=== PATIENT | female | born 1990 ===

== ENCOUNTER 2016-12-24 11:25 | Emergency (ER) | payer MEDICAID, OTHER ==
[2016-12-24 11:25] VITALS: BMI 34.9
[2016-12-24 11:32] VITALS: TEMP 98.4
[2016-12-24] MEDS ORDERED: Albuterol-Ipratrop 3 mg / 0.5 (3 ml) UD ONE (11:59)
[2016-12-24] MEDS ORDERED: Albuterol-Ipratrop 3 mg / 0.5 (3 ml) UD IH SCH (12:00)
[2016-12-24 12:43] VITALS: BP 115/74; PULSE 91; RESP 20; O2SAT 99
--- NOTE | 2016-12-24 12:58 | C.PDOC ---
History Of Present Illness 26 y/o female 15 weeks , hx asthma presents to the ED with complaints of cough and chest congestion x5 days. Pt reports using pump without relief. Denies fever (but "feels warm"), runny nose, sore throat, abdominal pain, dysuria, hematuria, vaginal discharge or any other complaints. Time Seen by Provider: 12/24/16 11:38 Chief Complaint (Nursing): Respiratory Distress History Per: Patient History/Exam Limitations: no limitations Onset/Duration Of Symptoms: Days Current Symptoms Are (Timing): Still Present Current Respiratory Medications: Albuterol Severity: Mild Recent travel outside of the [place]: No Past Medical History Reviewed: Historical Data, Nursing Documentation, Vital Signs Vital Signs: Last Vital Signs Temp 98.4 F 12/24/16 11:29 Pulse 91 H 12/24/16 12:43 Resp 20 12/24/16 12:43 BP 115/74 12/24/16 12:43 Pulse Ox 99 12/24/16 13:02 - Medical History PMH: Asthma, Hiatal Hernia, Migraine, Seizures - [facility] Procedures CLOSURE SKIN & SUBCUTANEOUS NEC (12/08/12) DRAINAGE OF L PLEURAL CAV WITH DRAIN DEV, PERC ENDO APPROACH (09/25/15) MONITORING NOS (04/12/14) INSPECTION OF UPPER INTESTINAL TRACT, ENDO (09/25/15) REPAIR RIGHT DIAPHRAGM, PERCUTANEOUS ENDOSCOPIC APPROACH (09/25/15) RESTRICTION OF ESOPHAGOGASTRIC JUNCTION, PERC ENDO APPROACH (09/25/15) ROBOTIC ASSISTED PROCEDURE OF TRUNK, PERC ENDO APPROACH (09/25/15) TETANUS TOXOID ADMINIST (12/08/12) Family History: States: Unknown Family Hx - Social History Hx Tobacco Use: Yes Hx Alcohol Use: No Hx Substance Use: No - Immunization History Hx Tetanus Toxoid Vaccination: No Hx Influenza Vaccination: Yes Hx Pneumococcal Vaccination: No Review Of Systems Except As Marked, All Systems Reviewed And Found Negative. Constitutional: Negative for: Fever, Chills ENT: Negative for: Nose Discharge, Throat Pain Cardiovascular: Negative for: Chest Pain Respiratory: Positive for: Cough, Other (chest congestion). Negative for: Shortness of Breath Gastrointestinal: Negative for: Abdominal Pain Genitourinary: Negative for: Dysuria, Hematuria, Vaginal Discharge Physical Exam - Physical Exam Appears: Non-toxic, No Acute Distress Skin: Warm, Dry, No Rash Head: Atraumatic, Normacephalic Ear(s): Bilateral: Normal Nose: Normal Oral Mucosa: Moist Throat: Normal, No Erythema Neck: Normal, Normal ROM, Supple Chest: Symmetrical Cardiovascular: Rhythm Regular, No Murmur Respiratory: No Rales, No Rhonchi, Wheezing (scattered wheezing bilaterally) Gastrointestinal/Abdominal: Soft, No Tenderness, Other (gravid) Extremity: Bilateral: Atraumatic Neurological/Psych: Oriented x3, Normal Speech, Normal Cognition ED Course And Treatment O2 Sat by Pulse Oximetry: 99 (room air) Pulse Ox Interpretation: Normal Progress Note: Plan: nebulizer treatment, prednisone, flu swab Medical Decision Making Medical Decision Making: Patient feeling better, requesting d/c , needs to greens picker child. Disposition Counseled Patient/Family Regarding: Diagnosis, Need For Followup, Rx Given - Disposition Disposition: HOME/ ROUTINE Disposition Time: 14:29 Condition: STABLE Additional Instructions: Use nebulizer 3 times a day. Take Prednisone 60 mg once a day for 4 days. Prescriptions: Prednisone [Deltasone] 60 mg PO DAILY #12 tablet Instructions: Asthma (ED) Forms: General Discharge Instructions, [facility] (Ivorian), Work Excuse - POA Present On Arrival: None - Clinical Impression Clinical Impression: Exacerbation of asthma - Scribe Statement The provider has reviewed the documentation as recorded by the Mehdi Rosas Provider Attestation: All medical record entries made by the Mehdi were at my direction and personally dictated by me. I have reviewed the chart and agree that the record accurately reflects my personal performance of the history, physical exam, medical decision making, and the department course for this patient. I have also personally directed, reviewed, and agree with the discharge instructions and disposition.
[2016-12-24] MEDS ORDERED: Albuterol 0.083% Inhal Sol (2.5 mg/3 mL) UD IH STA (13:56)
[2016-12-24] MEDS ORDERED: Albuterol 0.083% Inhal Sol (2.5 mg/3 mL) UD ONE (14:05)
== END 2016-12-24 14:36 | disposition home or self-care (01) ==
LOC: C.ER 11:25
DX: O99.512 Diseases of the respiratory system complicating pregnancy, second trimester (principal); J45.901 Unspecified asthma with (acute) exacerbation; Z72.0 Tobacco use; Z3A.15 15 weeks gestation of pregnancy

== ENCOUNTER 2017-06-12 07:52 | Inpatient (IN) | payer OTHER ==
[2017-05-19 11:09] VITALS: BMI 34.9
[2017-06-12] MEDS ORDERED: Penicillin G 5 Million Unit Vial IVPB ONE (08:04)
[2017-06-12] MEDS ORDERED: Lactated Ringer's 1,000 ML IV SCH (08:15)
[2017-06-12 08:36] LABS: BASO % 0.2 % (0.0-2.0); EOS % 0.2 % (0.0-4.0); LYMPH % 13.9 % (20.0-40.0); MEAN CORPUSCULAR HEMOGLOBIN 26.3 pg (27.0-31.0); MEAN CORPUSCULAR HGB CONC 33.5 g/dL (33.0-37.0); MEAN PLATELET VOLUME 9.7 fL (7.2-11.7); MONO # 0.9 K/uL (0.0-0.8); MONO % 6.4 % (0.0-10.0); NEUT # 11.5 K/uL (1.8-7.0); NEUT % 79.3 % (50.0-75.0); RBC 5.32 Mil/uL (3.80-5.20); RED CELL DISTRIBUTION WIDTH 14.9 % (11.5-14.5); WHITE BLOOD COUNT 14.5 K/uL (4.8-10.8)
[2017-06-12 08:40] LABS: MEAN CELL VOLUME 78.5 fL (81.0-99.0)
[2017-06-12 08:51] LABS: ALB/GLOB RATIO 1.1 (1.0-2.1); ALBUMIN 3.7 g/dL (3.5-5.0); ALT/SGPT 61 U/L (9-52); AST/SGOT 37 U/L (14-36); BLOOD UREA NITROGEN 8 mg/dL (7-17); CALCIUM 8.8 mg/dl (8.6-10.4); GFR AFRICAN-AMERICAN > 60; GFR NON-AFRICAN AMERICAN > 60
[2017-06-12] MEDS ORDERED: Bupivacaine HCl/FentaNYL Cit 100 ML EPI ONE (09:21)
[2017-06-12 10:50] LABS: SQUAMOUS EPITHIAL 3 /hpf (0-5); URINE BILIRUBIN NEGATIVE (NEGATIVE); URINE BLOOD 2+ (NEGATIVE); URINE CLARITY Clear (Clear); URINE COLOR Amber (YELLOW); URINE GLUCOSE (UA) NORMAL (Normal); URINE LEUKOCYTE ESTERASE NEG Leu/uL (Negative); URINE NITRATE NEGATIVE (NEGATIVE); URINE PROTEIN 1+ mg/dL (NEGATIVE); URINE UROBILINOGEN NORMAL mg/dL (0.2-1.0)
[2017-06-12 11:17] LABS: BARBITURATES, UR NEGATIVE (NEGATIVE); BENZODIAZEPINES, UR NEGATIVE (NEGATIVE); OPIATES, UR NEGATIVE (NEGATIVE); PHENCYCLIDINE, UR NEGATIVE (NEGATIVE)
--- NOTE | 2017-06-12 11:34 | OBHP ---
Datetime: 06/12/2017 08:07 IP Adm Impression: Term, intrauterine ; Active labor IP Admit Plan: Admit to unit; Initiate labor protocol Admit Comment, IP Provider: chief complaint-uterine contractions HPI 26 y/o at 39.6 wg awith c/o contractions since 5.30 am.Denies loo of fluid.reports hav ing some spotting course uncomplicated as per patient PMH epilepsy; last seizure 5 years ago PSH hernia repair(hiatal) OBGYN HX P3; NVDX3; topx3 Social hx tobacco use-smokes 6-7 cig/day; denies alcohol or illcit drug use Exam see exam section A/P 26 y/o at 39.6 wga in labor. -admit -start antibiotics for gbs prophylaxis Pelvic Type - PN: Adequate Extremities - PN: Normal Abdomen - PN: Normal Back - PN: Normal Lungs - PN: Normal Heart - PN: Normal General - PN: Normal Contraction Comments Provider: every 2min IP Hx Assessment: The History has been Reviewed and is Current EGA AdmitDate IP: 39.6 IP Chief Complaint: Uterine contractions FHR Category Provider Fetus A: Category I Dilatation, Provider: 4 Effacement, Provider: 80 Station, Provider: -2 Genitourinary Exam: Normal DTRs - PN: Normal
--- NOTE | 2017-06-12 11:37 | OBADHP ---
Datetime: 06/12/2017 08:07 Admit Comment, IP Provider: chief complaint-uterine contractions HPI 26 y/o at 39.6 wg awith c/o contractions since 5.30 am.Denies loo of fluid.reports hav ing some spotting course uncomplicated as per patient PMH epilepsy; last seizure 5 years ago PSH hernia repair(hiatal) OBGYN HX P3; NVDX3; topx3 Social hx tobacco use-smokes 6-7 cig/day; denies alcohol or illcit drug use Exam see exam section A/P 26 y/o at 39.6 wga in labor. -admit -start antibiotics for gbs prophylaxis Pelvic Type - PN: Adequate Extremities - PN: Normal Abdomen - PN: Normal Back - PN: Normal Lungs - PN: Normal Heart - PN: Normal General - PN: Normal Contraction Comments Provider: every 2min IP Hx Assessment: The History has been Reviewed and is Current IP Chief Complaint: Uterine contractions FHR Category Provider Fetus A: Category I Dilatation, Provider: 4 Effacement, Provider: 80 Station, Provider: -2 Genitourinary Exam: Normal DTRs - PN: Normal EGA AdmitDate IP: 39.6 IP Adm Impression: Term, intrauterine ; Active labor IP Admit Plan: Admit to unit; Initiate labor protocol
[2017-06-12] MEDS ORDERED: Oxytocin 20 units in LR 2,000 ML IV ONE (11:49)
[2017-06-12] MEDS ORDERED: Lidocaine 2% Inj (20ml) ONE (11:50)
--- NOTE | 2017-06-12 12:18 | OBDS ---
MATERNAL INFORMATION Estimated Blood Loss (ml): 250 Provider Comments: of a female .body and shoulders delivered without difficulty cord clamped and cut.cord blood collected placenta sponatneously delivered perineum intact fundus firm patient and infant stbalmarisel ebl 150cc LABOR SUMMARY EDC: 06/13/2017 00:00 No. Babies in Womb: 1 LABOR INFORMATION Group B Beta Strep: Positive (Annotations: 05/21/17) VAGINAL DELIVERY Episiotomy: None Laceration Extension: N/A Laceration Type: None Laceration Repair: Not Applicable Sponge Count Correct: Yes; Vaginal Sweep Performed Sharps Count Correct: N/A
[2017-06-12] MEDS ORDERED: DiphenhydrAMINE 50 mg/ml Inj IVP STA (12:19)
[2017-06-12] MEDS ORDERED: DiphenhydrAMINE 50 mg/ml Inj ONE (12:36)
[2017-06-12] MEDS ORDERED: Benzocaine/Menthol 20%-0.5% Topical Spray (60 ml) TOP PRN (13:43)
[2017-06-12] MEDS ORDERED: Oxycodone/Acetaminophen 5/325 mg Tab PO PRN ×2 (13:43)
[2017-06-12] MEDS ORDERED: Oxytocin 30 UNIT 30 UNITS/500 ML BAG IV SCH (13:45)
--- NOTE | 2017-06-13 07:39 | OBPPN ---
Datetime: 06/13/2017 07:36 PP Pain Prov: Within normal limits PP Nausea Prov: Denies PP Flatus Prov: Yes PP Abdomen/Uterus Prov: Normal PP Lochia Prov: Normal PP Extremities Prov: Normal PP Comments Phys Exam Prov: fudus below umbli ext no edema,no calf ten PP Impression Prov: Normal progression PP Plan Prov: Continue present management PP Progress Note Prov: pt was seen at bed side, pain under contrl, no n/v, tolerating deit,voiding,m in lochia , flatusa+ ppd#1 s/p cbc reg deit cont pp care cont pain man Vital Signs Provider PP: Reviewed; Within Normal Limits
[2017-06-13 08:23] LABS: BASO % 0.1 % (0.0-2.0); EOS % 0.3 % (0.0-4.0); HEMOGLOBIN 12.1 g/dL (11.0-16.0); LYMPH # 2.5 K/uL (1.0-4.3); LYMPH % 16.1 % (20.0-40.0); MEAN CELL VOLUME 78.9 fL (81.0-99.0); MEAN CORPUSCULAR HEMOGLOBIN 25.8 pg (27.0-31.0); MEAN CORPUSCULAR HGB CONC 32.7 g/dL (33.0-37.0); MEAN PLATELET VOLUME 9.8 fL (7.2-11.7); MONO # 1.2 K/uL (0.0-0.8); MONO % 7.8 % (0.0-10.0); NEUT # 11.9 K/uL (1.8-7.0); NEUT % 75.7 % (50.0-75.0); RBC 4.68 Mil/uL (3.80-5.20); RED CELL DISTRIBUTION WIDTH 14.7 % (11.5-14.5); WHITE BLOOD COUNT 15.7 K/uL (4.8-10.8)
[2017-06-13] MEDS: Multiple Vitamins Tab PO SCH (09:16)
[2017-06-13] MEDS ORDERED: Influenza Vaccine 60 mcg/0.5 mL SYR (4YR UP) IM ONE (14:00)
[2017-06-14 07:46] VITALS: BP 123/82; PULSE 50; RESP 18; TEMP 97.8; O2SAT 97
[2017-06-14] MEDS: Multiple Vitamins Tab PO SCH (09:39)
--- NOTE | 2017-06-14 09:48 | OBPPN ---
Datetime: 06/14/2017 09:45 PP Pain Prov: Within normal limits PP Nausea Prov: Denies PP Flatus Prov: Yes PP Abdomen/Uterus Prov: Normal PP Lochia Prov: Normal PP Extremities Prov: Normal PP Comments Phys Exam Prov: fudus below umblicus ext no edema,no calf ten PP Impression Prov: Normal progression PP Plan Prov: Discharge PP Progress Note Prov: pt was seen at bed siide, pain under control,no n/v, tolerating det, voiding, min lochisa, flatus+ ppd#2 s/p dc home no sex motrin prn f/u in clinic in 6week Vital Signs Provider PP: Reviewed; Within Normal Limits
--- NOTE | 2017-06-14 09:50 | OBDCSUM ---
Datetime: 06/14/2017 09:47 Discharged to, Provider: Home Follow up at, Provider: 6week Disch Instr Diet: Regular Discharge Instructions, Provider: Routine instructions given Discharge Diagnosis, Provider: Term Delivered Follow up in weeks, Provider: clinic Disch Activity Restrictions: No lifting; No driving; Minimize walking; Minimize stair-climbing; No s exual activity; Nothing in vagina - Davy, tampons, douche Discharge Comment, Provider: no sex motrin prn f/u in 6wek Discharge Diagnosis Prov Other: s/p
== END 2017-06-14 12:11 | disposition home or self-care (01) | DRG 373 ==
LOC: C.EROB 07:52 → C.4D 08:00 → C.4M 14:26
PROVIDERS: ADMIT Student in an Organized Health Care Education/Training Program; ATTEND Student in an Organized Health Care Education/Training Program
PROC: 10E0XZZ Delivery of Products of Conception, External Approach (ICD-10-PCS; principal; 2017-06-12)
DX: O99.334 Smoking (tobacco) complicating childbirth (principal); F17.210 Nicotine dependence, cigarettes, uncomplicated; O99.820 Streptococcus B carrier state complicating pregnancy; Z3A.39 39 weeks gestation of pregnancy; Z37.0 Single live birth

== ENCOUNTER 2018-04-23 16:26 | Emergency (ER) | payer OTHER ==
[2018-04-23 16:27] VITALS: BMI 34.3
[2018-04-23] MEDS ORDERED: Sodium Chloride 0.9% 1,000 ML IV ONE (17:25)
[2018-04-23] MEDS ORDERED: Sodium Chloride 0.9% 1,000 ML ONE (17:37)
[2018-04-23 17:47] LABS: BASO % 0.3 % (0.0-2.0); EOS # 0.1 K/uL (0.0-0.7); EOS % 0.6 % (0.0-4.0); HEMOGLOBIN 13.6 g/dL (11.0-16.0); LYMPH # 2.2 K/uL (1.0-4.3); LYMPH % 14.8 % (20.0-40.0); MEAN CELL VOLUME 80.3 fL (81.0-99.0); MEAN CORPUSCULAR HGB CONC 33.7 g/dL (33.0-37.0); MEAN PLATELET VOLUME 8.4 fL (7.2-11.7); MONO # 0.8 K/uL (0.0-0.8); MONO % 5.5 % (0.0-10.0); NEUT # 11.7 K/uL (1.8-7.0); NEUT % 78.8 % (50.0-75.0); NRBC % 0.1 % (0.0-2.0); RBC 5.05 Mil/uL (3.80-5.20); WHITE BLOOD COUNT 14.9 K/uL (4.8-10.8)
[2018-04-23 17:52] LABS: HCG,QUALITATIVE URINE POSITIVE (NEGATIVE)
[2018-04-23 17:55] LABS: SQUAMOUS EPITHIAL 1 /hpf (0-5); URINE BACTERIA OCC (<OCC); URINE BILIRUBIN NEGATIVE (NEGATIVE); URINE BLOOD 1+ (NEGATIVE); URINE CLARITY Clear (Clear); URINE COLOR Yellow (YELLOW); URINE GLUCOSE (UA) NORMAL (Normal); URINE LEUKOCYTE ESTERASE NEG Leu/uL (Negative); URINE PROTEIN NEGATIVE (NEGATIVE)
[2018-04-23 18:02] LABS: ALB/GLOB RATIO 1.4 (1.0-2.1); ALBUMIN 3.7 g/dL (3.5-5.0); ALT/SGPT 17 U/L (9-52); AST/SGOT 19 U/L (14-36); BLOOD UREA NITROGEN 8 mg/dL (7-17); CALCIUM 8.8 mg/dl (8.6-10.4); GFR NON-AFRICAN AMERICAN > 60
--- NOTE | 2018-04-23 18:10 | C.PDOC ---
History Of Present Illness 27 year old female with PMHx of seizures presents to the ED BIBA status post witnessed seizure at a [place]. Reports she went to the grocery store to get a chocolate bar because she felt her blood sugar was getting low when she passed out. States she remembers arriving to the grocery store and trying to find orange juice when she lost consciousness. Complains of contusion to the temporal occipital region. Denies any incontinence, headache, fever, chills, nausea, vomiting, chest pain, shortness of breath, or any other symptoms. Notes she has not taken Dilantin in 3 years and she has not had a seizure for 5 years. Time Seen by Provider: 04/23/18 17:19 Chief Complaint (Nursing): Seizure History Per: Patient History/Exam Limitations: no limitations Recent Seizure Activity Began: Just Before Arrival Number Of Seizures: One Length Of Seizures (Duration): Seconds Post-ictal Period: No Past Medical History Reviewed: Historical Data, Nursing Documentation, Vital Signs Vital Signs: Last Vital Signs Temp Pulse 113 H 04/23/18 16:35 Resp 25 H 04/23/18 16:35 BP 129/73 04/23/18 16:35 Pulse Ox 98 04/23/18 16:35 - Medical History PMH: Asthma, Hiatal Hernia, Migraine, Seizures Denies: Depression, Diabetes, HTN, Chronic Kidney Disease Other Surgeries: Hx of surgeries - [facility] Procedures CLOSURE SKIN & SUBCUTANEOUS NEC (12/08/12) DELIVERY OF PRODUCTS OF CONCEPTION, EXTERNAL APPROACH (06/12/17) DRAINAGE OF L PLEURAL CAV WITH DRAIN DEV, PERC ENDO APPROACH (09/25/15) MONITORING NOS (04/12/14) INSPECTION OF UPPER INTESTINAL TRACT, ENDO (09/25/15) REPAIR RIGHT DIAPHRAGM, PERCUTANEOUS ENDOSCOPIC APPROACH (09/25/15) RESTRICTION OF ESOPHAGOGASTRIC JUNCTION, PERC ENDO APPROACH (09/25/15) ROBOTIC ASSISTED PROCEDURE OF TRUNK, PERC ENDO APPROACH (09/25/15) TETANUS TOXOID ADMINIST (12/08/12) Family History: States: No Known Family Hx - Social History Hx Tobacco Use: Yes Hx Alcohol Use: Yes Hx Substance Use: No - Immunization History Hx Tetanus Toxoid Vaccination: No Hx Influenza Vaccination: No Hx Pneumococcal Vaccination: No Review Of Systems Except As Marked, All Systems Reviewed And Found Negative. Constitutional: Negative for: Fever, Chills Cardiovascular: Negative for: Palpitations Respiratory: Negative for: Shortness of Breath Gastrointestinal: Negative for: Nausea, Vomiting Skin: Positive for: Other (contusion to temporal occipital region ) Neurological: Positive for: Seizures. Negative for: Headache, Dizziness Physical Exam - Physical Exam Appears: Non-toxic, No Acute Distress Skin: Warm, Dry, No Rash Head: Normacephalic, Other (contusion to temporal occipital region ) Eye(s): bilateral: Normal Inspection, Other (colored contacts) Ear(s): Bilateral: Normal Nose: Normal Oral Mucosa: Moist Tongue: Normal Appearing, No Bite Throat: Normal Neck: Normal ROM, Supple Chest: Symmetrical Cardiovascular: Rhythm Regular Respiratory: Normal Breath Sounds, No Rales, No Rhonchi, No Wheezing Gastrointestinal/Abdominal: Soft, No Tenderness Extremity: Normal ROM Extremity: Bilateral: Atraumatic, Normal Color And Temperature, Normal ROM Neurological/Psych: Oriented x3, Normal Speech Gait: Steady ED Course And Treatment - Laboratory Results Result Diagrams: 04/23/18 17:37 04/23/18 17:37 Lab Interpretation: Abnormal (QHCG 275) Urine POC: Positive O2 Sat by Pulse Oximetry: 98 (RA) Pulse Ox Interpretation: Normal - Radiology CXR: Interpreted by Me, Viewed By Me, Read By Radiologist CXR Interpretation: Yes: No Acute Disease - CT Scan/US US transvaginal/pelvis Other Rad Studies (CT/US): Read By Radiologist, Radiology Report Reviewed CT/US Interpretation: IMPRESSION: 1. Transabdominal and trans-vaginal ultrasound study of the pelvis. 2. LMP 03/01/18, G7, para 4, AB 3. 1 week ago, had IUD placed 2 days ago. 3. Images of the pelvis were acquired with a high-resolution scanner. 4. The uterus measures 11.24 x 5.37 x 6.89 cm and is anteverted in configuration. No uterine masses are identified. Endometrial thickness is 0.71 cm. There is no fluid in the cul-de-sac. 5. The right ovary measures 3.22 x 1.12 x 3.02 cm. There is normal Doppler blood flow signal. 6. The left ovary measures 2.37 x 1.65 x 1.97 cm, and also demonstrates a normal Doppler blood flow signal. 7. Both ovaries demonstrate multiple follicular cysts. 8. There is an IUD in the endometrial cavity. Reevaluation Time: 20:48 Reassessment Condition: Improved Medical Decision Making Medical Decision Making: Plan -- EKG -- POC glucose -- IV Fluids -- CXR Blood sugar levels were 51 on arrival. Patient was given sugary drinks. On reassessment, blood sugar levels were 113. On reevaluation, patient states she had an 6 days ago. Patient had an IUD placed 2 days ago and has had mild vaginal spotting since then. ([id number]). Denies any vaginal discharge or abdominal pain. recent theraputic AB and IUD placement no , no ectopic vasovagal vs poor PO intake for the day may have provoked seizure activity minor L temp/occ and L frontal contusions, defer head CT normal neuro exam Mild leukocytosis may be related to fall or falling since LOW susp of abd complications of theraputic AB or endometritis outpatient f/u. Disposition Doctor Will See Patient In The: Office Counseled Patient/Family Regarding: Studies Performed, Diagnosis - Disposition Disposition: HOME/ ROUTINE Disposition Time: 20:51 Condition: GOOD Forms: [facility] (Zimbabwean) - Clinical Impression Clinical Impression: Seizure, history - Scribe Statement The provider has reviewed the documentation as recorded by the Scribe Apple Orantes All medical record entries made by the Anilibe were at my direction and personally dictated by me. I have reviewed the chart and agree that the record accurately reflects my personal performance of the history, physical exam, medical decision making, and the department course for this patient. I have also personally directed, reviewed, and agree with the discharge instructions and disposition.
[2018-04-23 18:11] LABS: BARBITURATES, UR NEGATIVE (NEGATIVE); BENZODIAZEPINES, UR NEGATIVE (NEGATIVE); OPIATES, UR NEGATIVE (NEGATIVE); PHENCYCLIDINE, UR NEGATIVE (NEGATIVE)
--- NOTE | 2018-04-23 18:12 | RAD ---
Date of service: 04/23/2018 PROCEDURE: CHEST RADIOGRAPH, 1 VIEW HISTORY: Seizure COMPARISON: 10/04/2015 FINDINGS: LUNGS: Clear. PLEURA: No pneumothorax or pleural fluid seen. CARDIOVASCULAR: No aortic atherosclerotic calcification present. Normal. OSSEOUS STRUCTURES: No significant abnormalities. VISUALIZED UPPER ABDOMEN: Normal. OTHER FINDINGS: None. IMPRESSION: No active disease. No acute/significant interval changes. Concordant results with the preliminary interpretation rendered by the emergency department physician procedure.
[2018-04-23 21:08] VITALS: BP 108/61; PULSE 71; RESP 16; TEMP 98.3; O2SAT 97
--- NOTE | 2018-04-24 15:12 | US ---
Pelvic ultrasound HISTORY: 1 week prior. Intrauterine device placed 2 days prior. Pelvic pain. Comparison: None available. Technique: Real-time sonography was performed through the pelvis utilizing transabdominal and transvaginal techniques. Findings: HCG measures 275. Uterus: 11.2 x 5.4 x 6.9 centimeters. Heterogeneous echotexture. Anteverted. Endometrium measures 7 millimeters. Intrauterine device seen within the endometrial cavity, possibly somewhat low lying. Clinical correlation. No free fluid in the pelvic cul-de-sac Right ovary: 3.2 x 1.1 x 3.0 centimeters. Normal flow. Left ovary: 2.4 x 1.7 x 2.0 centimeters. Normal flow. Impression: 1. Intrauterine device seen within the endometrial cavity, possibly somewhat low lying. Clinical correlation. 2. HCG level is positive but low measuring 275. In the setting of a positive test and lack of discrete intrauterine , considerations may include missed / versus early versus ectopic . Clinical correlation. Continued interval follow-up is recommended if clinically indicated. A preliminary report was generated by Dr. Ten Garzon from [facility] at 8:45 p.m. on 04/23/2018.
--- NOTE | 2018-04-27 22:12 | CARD ---
APPROVED REPORT Date of service: 04/23/2018 EKG Measurement Heart [id number] <Conclusion> Normal sinus rhythm Moderate voltage criteria for LVH, may be normal variant Borderline ECG
== END 2018-04-23 21:13 | disposition home or self-care (01) ==
LOC: C.ER 16:26
DX: R56.9 Unspecified convulsions (principal); Z98.890 Other specified postprocedural states
CPT/HCPCS: 71045; 76830; 76856; 80053; 80320; 80324; 80345; 80346; 80349; 80353; 80358; 80361; 81001; 82550; 82948; 83992; 84702; 84703; 85025; 86850; 86900; 93005; 99285; J7030

== ENCOUNTER 2018-04-26 22:55 | Emergency (ER) | payer OTHER ==
[2018-04-26 22:55] VITALS: BMI 34.3
[2018-04-26] MEDS ORDERED: Magnesium Sulfate 1 gm in D5W 1 GM/100 ML BAG IVPB STA (23:32)
[2018-04-26] MEDS ORDERED: Dexamethasone 4 mg/1 ml IVP STA (23:32)
[2018-04-26] MEDS ORDERED: Sodium Chloride 0.9% 1,000 ML IV STA (23:32)
--- NOTE | 2018-04-26 23:32 | C.PDOC ---
History Of Present Illness 27 year old female presents to the ED c/o headache, dizziness, not feeling herself for the past couple of days. Patient was seen on 04/13 for hypoglycemic reaction which caused her to faint and hit her head. Patient states she noticed bruising behind her left ear. Patient states she took Tylenol yesterday and Motrin today 4 hours LAST TURNER both without relief. Patient denies nausea, vomit, diarrhea, visual changes, neck pain, weakness, numbness. Chief Complaint (Nursing): Dizziness/Lightheaded History Per: Patient History/Exam Limitations: no limitations Injury Occurred (Timing): Days Ago: (3) Onset/Duration Of Symptoms: Days (2) Patient States: Fell Striking Head Severity: None Loss Of Consciousness: Yes Recent travel outside of the [place]: No Additional History Per: Patient Past Medical History Reviewed: Historical Data, Nursing Documentation, Vital Signs Vital Signs: Last Vital Signs Temp 97.8 F 04/26/18 23:01 Pulse 81 04/26/18 23:01 Resp 20 04/26/18 23:01 BP 126/79 04/26/18 23:01 Pulse Ox 100 04/26/18 23:01 - Medical History PMH: Asthma, Hiatal Hernia, Migraine, Seizures Denies: Depression, Diabetes, HTN, Chronic Kidney Disease Surgical History: No Surg Hx - [facility] Procedures CLOSURE SKIN & SUBCUTANEOUS NEC (12/08/12) DELIVERY OF PRODUCTS OF CONCEPTION, EXTERNAL APPROACH (06/12/17) DRAINAGE OF L PLEURAL CAV WITH DRAIN DEV, PERC ENDO APPROACH (09/25/15) MONITORING NOS (04/12/14) INSPECTION OF UPPER INTESTINAL TRACT, ENDO (09/25/15) REPAIR RIGHT DIAPHRAGM, PERCUTANEOUS ENDOSCOPIC APPROACH (09/25/15) RESTRICTION OF ESOPHAGOGASTRIC JUNCTION, PERC ENDO APPROACH (09/25/15) ROBOTIC ASSISTED PROCEDURE OF TRUNK, PERC ENDO APPROACH (09/25/15) TETANUS TOXOID ADMINIST (12/08/12) Family History: States: Unknown Family Hx - Social History Hx Tobacco Use: Yes Hx Alcohol Use: Yes Hx Substance Use: No - Immunization History Hx Tetanus Toxoid Vaccination: No Hx Influenza Vaccination: No Hx Pneumococcal Vaccination: No Review Of Systems Constitutional: Negative for: Fever, Chills Eyes: Negative for: Vision Change Cardiovascular: Negative for: Chest Pain Respiratory: Negative for: Shortness of Breath Gastrointestinal: Negative for: Nausea, Vomiting, Abdominal Pain Musculoskeletal: Negative for: Neck Pain Skin: Positive for: Bruising Neurological: Positive for: Headache, Dizziness. Negative for: Weakness, Numbness Physical Exam - Physical Exam Appears: Non-toxic, No Acute Distress Skin: Warm, Dry, Other (bruising behind left ear) Head: Atraumatic, Normacephalic, Tenderness (soft tissue left parietal region) Eye(s): bilateral: Normal Inspection, PERRL, EOMI Ear(s): Left: Other (bruising behind left ear. Not tender to palpation), Bilateral: Normal Neck: Normal ROM, No Midline Cervical Tenderness, Supple Chest: Symmetrical Cardiovascular: Rhythm Regular Respiratory: Normal Breath Sounds, No Rales, No Rhonchi, No Wheezing Gastrointestinal/Abdominal: Soft, No Tenderness, No Guarding, No Rebound Extremity: Normal ROM, No Tenderness, No Swelling Neurological/Psych: Oriented x3, Normal Speech, Normal Cognition, Normal Motor, Normal Sensation, Other (non focal) Gait: Steady ED Course And Treatment O2 Sat by Pulse Oximetry: 100 (ON RA) Pulse Ox Interpretation: Normal - CT Scan/US CT head Other Rad Studies (CT/US): Read By Radiologist, Radiology Report Reviewed CT/US Interpretation: CT SCAN OF THE BRAIN WITHOUT IV CONTRAST. CLINICAL INDICATION: Trauma. TECHNIQUE: Axial images of the brain obtained without IV contrast administration. Normal size of the ventricles and extra-axial spaces for the patient's age. Normal white matter tracts of the supratentorial brain. Normal basal ganglia and thalami. Normal brainstem. Normal cerebellum. There is no demonstrated extra-axial, intraparenchymal, or intraventricular hemorrhage. There are no findings of an acute ischemic infarction. Normal calvarium. There is no demonstrated fracture. Normal soft tissue structures. Normal visualized paranasal sinuses. IMPRESSION: Normal unenhanced CT scan of the brain. . Electronically signed on Apr 27, 2018 12:40:55 AM EST by: Gilbert Gutiérrez M.D., Certified by LEONOR, MSK, Neuroradiology Progress - Re-Evaluation Re-evaluation Note: 04/27/18 00:43 neuro intact, feels better CT REPORT NEG - Data Reviewed Data Reviewed: Diagnostic imaging, Old records Medical Decision Making Medical Decision Making: Plan: * CT head * Decadron 8 mg IVP * Magnesium sulfate IVPB * Reglan 10 mg IVP * IV fluids * Tylenol 975 mg PO Disposition Counseled Patient/Family Regarding: Studies Performed, Diagnosis, Need For F ollowup, Rx Given - Disposition Referrals: YOUR,PMD [Other] Disposition: HOME/ ROUTINE Disposition Time: 00:44 Condition: IMPROVED Prescriptions: Metoclopramide [Reglan] 1 tab PO TID PRN #25 tab PRN Reason: Nausea/Vomiting Instructions: Minor Head Injury (DC) Forms: [facility] (Serbian), Work Excuse - Clinical Impression Clinical Impression: Concussion syndrome - Scribe Statement The provider has reviewed the documentation as recorded by the Scribe Theodore Gleason All medical record entries made by the Scribe were at my direction and personally dictated by me. I have reviewed the chart and agree that the record accurately reflects my personal performance of the history, physical exam, medical decision making, and the department course for this patient. I have also personally directed, reviewed, and agree with the discharge instructions and disposition.
[2018-04-26] MEDS ORDERED: Dexamethasone 4 mg/1 ml ONE (23:43)
[2018-04-26] MEDS ORDERED: Sodium Chloride 0.9% 1,000 ML ONE (23:44)
[2018-04-27 01:28] VITALS: BP 104/59; PULSE 70; RESP 20; TEMP 98; O2SAT 97
--- NOTE | 2018-04-27 09:24 | CT ---
Date of service: 04/27/2018 PROCEDURE: CT HEAD WITHOUT CONTRAST. HISTORY: TRAUMA COMPARISON: 11/22/2012 TECHNIQUE: Axial computed tomography images were obtained through the head/brain without intravenous contrast. Radiation dose: Total exam DLP = 1063.24 mGy-cm. This CT exam was performed using one or more of the following dose reduction techniques: Automated exposure control, adjustment of the mA and/or kV according to patient size, and/or use of iterative reconstruction technique. FINDINGS: HEMORRHAGE: No intracranial hemorrhage. BRAIN: No mass effect or edema. No atrophy or chronic microvascular ischemic changes. VENTRICLES: Unremarkable. No hydrocephalus. CALVARIUM: Unremarkable. PARANASAL SINUSES: Unremarkable as visualized. No significant inflammatory changes. MASTOID AIR CELLS: Unremarkable as visualized. No inflammatory changes. OTHER FINDINGS: None. IMPRESSION: No acute intracranial abnormality. If symptoms persist, consider correlation with MRI. A preliminary report was generated at 12:40 a.m. on 04/27/[address] Gilbert Gutiérrez from [facility].
== END 2018-04-27 01:29 | disposition home or self-care (01) ==
LOC: C.ER 22:55
DX: S06.0X0A Concussion without loss of consciousness, initial encounter (principal); X58.XXXA Exposure to other specified factors, initial encounter
CPT/HCPCS: 70450; 96361; 96365; 96375; 99285; J1100; J2765; J3475; J7030

== ENCOUNTER 2018-07-13 16:29 | Emergency (ER) | payer OTHER ==
[2018-07-13 16:43] VITALS: BMI 37.2
[2018-07-13 16:48] VITALS: O2SAT 99
--- NOTE | 2018-07-13 16:54 | C.PDOC ---
History Of Present Illness Patient is 27 year old female who presents to the ED c/o intermittent dizziness for 4 days that is worse with lying down and positional changes in bed. Patient also notes an associated headache. She denies any trauma, weakness, or visual changes. <Ean Mottapson M - Last Filed: 07/13/18 18:18> <Isha Robertson - Last Filed: 07/13/18 16:48> History Per: Patient History/Exam Limitations: no limitations Onset/Duration Of Symptoms: Days (4) Current Symptoms Are (Timing): Still Present Recent travel outside of the [place]: No Additional History Per: Patient <Bulmaro Motta - Last Filed: 07/13/18 18:18> Time Seen by Provider: 07/13/18 16:44 Chief Complaint (Nursing): Dizziness/Lightheaded Past Medical History Vital Signs: Last Vital Signs Temp 98.8 F 07/13/18 16:43 Pulse 90 07/13/18 16:43 Resp 18 07/13/18 16:43 BP 113/78 07/13/18 16:43 Pulse Ox 99 07/13/18 16:43 - Medical History PMH: Asthma, Hiatal Hernia, Migraine, Seizures Denies: Depression, Diabetes, HTN, Chronic Kidney Disease - [facility] [place] Procedures CLOSURE SKIN & SUBCUTANEOUS NEC (12/08/12) DELIVERY OF PRODUCTS OF CONCEPTION, EXTERNAL APPROACH (06/12/17) DRAINAGE OF L PLEURAL CAV WITH DRAIN DEV, PERC ENDO APPROACH (09/25/15) MONITORING NOS (04/12/14) INSPECTION OF UPPER INTESTINAL TRACT, ENDO (09/25/15) REPAIR RIGHT DIAPHRAGM, PERCUTANEOUS ENDOSCOPIC APPROACH (09/25/15) RESTRICTION OF ESOPHAGOGASTRIC JUNCTION, PERC ENDO APPROACH (09/25/15) ROBOTIC ASSISTED PROCEDURE OF TRUNK, PERC ENDO APPROACH (09/25/15) TETANUS TOXOID ADMINIST (12/08/12) Family History: States: Unknown Family Hx - Social History Hx Tobacco Use: Yes Hx Alcohol Use: Yes Hx Substance Use: No - Immunization History Hx Tetanus Toxoid Vaccination: No Hx Influenza Vaccination: No Hx Pneumococcal Vaccination: No <Isha Robertson - Last Filed: 07/13/18 16:48> Reviewed: Historical Data, Nursing Documentation, Vital Signs Vital Signs: Last Vital Signs Temp 98.8 F 07/13/18 16:43 Pulse 90 02/05/19 16:43 Resp 18 07/13/18 16:43 BP 113/78 07/13/18 16:43 Pulse Ox 99 07/13/18 16:53 Surgical History: No Surg Hx - [facility] Procedures CLOSURE SKIN & SUBCUTANEOUS NEC (12/08/12) DELIVERY OF PRODUCTS OF CONCEPTION, EXTERNAL APPROACH (06/12/17) DRAINAGE OF L PLEURAL CAV WITH DRAIN DEV, PERC ENDO APPROACH (09/25/15) MONITORING NOS (04/12/14) INSPECTION OF UPPER INTESTINAL TRACT, ENDO (09/25/15) REPAIR RIGHT DIAPHRAGM, PERCUTANEOUS ENDOSCOPIC APPROACH (09/25/15) RESTRICTION OF ESOPHAGOGASTRIC JUNCTION, PERC ENDO APPROACH (09/25/15) ROBOTIC ASSISTED PROCEDURE OF TRUNK, PERC ENDO APPROACH (09/25/15) TETANUS TOXOID ADMINIST (12/08/12) <Bulmaro Motta M - Last Filed: 07/13/18 18:18> Review Of Systems Except As Marked, All Systems Reviewed And Found Negative. Neurological: Positive for: Headache, Dizziness <Bulmaro Motta M - Last Filed: 07/13/18 18:18> Physical Exam - Physical Exam Appears: Non-toxic, No Acute Distress Skin: Normal Color, Warm, Dry Head: Atraumatic, Normacephalic Eye(s): bilateral: Normal Inspection, PERRL, EOMI Nose: Normal Oral Mucosa: Moist Chest: Symmetrical Cardiovascular: Rhythm Regular, No Murmur Respiratory: Normal Breath Sounds, No Rales, No Rhonchi, No Wheezing Gastrointestinal/Abdominal: Normal Exam, Soft, No Tenderness Extremity: Normal ROM Neurological/Psych: Oriented x3, Normal Speech, Other (Not presently dizzy ) <Bulmaro Motta M - Last Filed: 07/13/18 18:18> ED Course And Treatment O2 Sat by Pulse Oximetry: 99 <Isha Robertson - Last Filed: 07/13/18 16:48> - Laboratory Results Result Diagrams: 07/13/18 17:31 07/13/18 17:31 - CT Scan/US CAT Head Other Rad Studies (CT/US): Read By Radiologist, Radiology Report Reviewed CT/US Interpretation: IMPRESSION: No acute intracranial pathology identified. <Bulmaro Motta - Last Filed: 07/13/18 18:18> Medical Decision Making Medical Decision Making: Plan: CAT Head LAbs Urinalysis Urinalysis HCG Antivert 25mg PO Sudafed 30mg PO Assessment: Vertigo patient states improvement. Will administer toradol for slight headache as described by patient. Follow up with pmd within 2 days. <Bulmaro Motta M - Last Filed: 07/13/18 18:18> Disposition <Isha Robertson - Last Filed: 07/13/18 16:48> Counseled Patient/Family Regarding: Studies Performed, Diagnosis - Disposition Disposition Time: 18:15 <Ean Mottapson Ella - Last Filed: 07/13/18 18:18> - Disposition Referrals: Bryan Green MD [Staff Provider] - Disposition: HOME/ ROUTINE Condition: STABLE Additional Instructions: follow up with your doctor within 2 days call to make an appointment take medications as prescribed and needed return to ER if symptoms worsens or progress Prescriptions: Meclizine [Meclizine*] 25 mg PO TID PRN #15 tab PRN Reason: Dizziness Naproxen [Naprosyn] 500 mg PO BID PRN #16 tab PRN Reason: Pain, Moderate (4-7) Pseudoephedrine HCl [Sudafed] 30 mg PO TID PRN #12 tablet PRN Reason: Dizziness Instructions: Vertigo (a Type of Dizziness), Headache, Adult (DC) Forms: [facility] (Turkmen), General Discharge Instructions, Work Excuse - Clinical Impression Clinical Impression: Dizziness, Headache - Scribe Statement The provider has reviewed the documentation as recorded by the Mehdi Yost All medical record entries made by the Mehdi were at my direction and personally dictated by me. I have reviewed the chart and agree that the record accurately reflects my personal performance of the history, physical exam, medical decision making, and the department course for this patient. I have also personally directed, reviewed, and agree with the discharge instructions and disposition. <KaliaChamberlain M - Last Filed: 07/13/18 18:18>
[2018-07-13 17:38] LABS: BASO # 0.1 K/uL (0.0-0.2); BASO % 0.5 % (0.0-2.0); EOS # 0.1 K/uL (0.0-0.7); EOS % 0.9 % (0.0-4.0); HEMOGLOBIN 14.9 g/dL (11.0-16.0); LYMPH % 28.8 % (20.0-40.0); MEAN CELL VOLUME 81.4 fL (81.0-99.0); MEAN CORPUSCULAR HEMOGLOBIN 26.7 pg (27.0-31.0); MEAN CORPUSCULAR HGB CONC 32.8 g/dL (33.0-37.0); MEAN PLATELET VOLUME 8.7 fL (7.2-11.7); MONO # 0.8 K/uL (0.0-0.8); MONO % 7.3 % (0.0-10.0); NEUT # 6.5 K/uL (1.8-7.0); NEUT % 62.5 % (50.0-75.0); RBC 5.59 Mil/uL (3.80-5.20); RED CELL DISTRIBUTION WIDTH 14.1 % (11.5-14.5); WHITE BLOOD COUNT 10.3 K/uL (4.8-10.8)
[2018-07-13 17:48] LABS: SQUAMOUS EPITHIAL 2 /hpf (0-5); URINE BACTERIA OCC (<OCC); URINE BILIRUBIN NEGATIVE (NEGATIVE); URINE BLOOD NEGATIVE (NEGATIVE); URINE CLARITY Clear (Clear); URINE COLOR Yellow (YELLOW); URINE GLUCOSE (UA) NORMAL (Normal); URINE LEUKOCYTE ESTERASE NEG Leu/uL (Negative); URINE PROTEIN NEGATIVE (NEGATIVE); URINE UROBILINOGEN NORMAL mg/dL (0.2-1.0)
[2018-07-13 17:56] LABS: ALB/GLOB RATIO 1.6 (1.0-2.1); ALBUMIN 4.2 g/dL (3.5-5.0); ALT/SGPT 9 U/L (9-52); AST/SGOT 19 U/L (14-36); BLOOD UREA NITROGEN 14 mg/dL (7-17); CALCIUM 9.4 mg/dl (8.6-10.4); GFR NON-AFRICAN AMERICAN > 60
--- NOTE | 2018-07-13 17:57 | CT ---
Date of service: 07/13/2018 PROCEDURE: CT HEAD WITHOUT CONTRAST. HISTORY: dizziness COMPARISON: Noncontrast head CT performed 04/27/18 TECHNIQUE: Axial computed tomography images were obtained through the head/brain without intravenous contrast. Radiation dose: Total exam DLP = 1101.91 mGy-cm. This CT exam was performed using one or more of the following dose reduction techniques: Automated exposure control, adjustment of the mA and/or kV according to patient size, and/or use of iterative reconstruction technique. FINDINGS: HEMORRHAGE: No intracranial hemorrhage. BRAIN: No mass effect or edema. No atrophy or chronic microvascular ischemic changes. VENTRICLES: No hydrocephalus. CALVARIUM: Unremarkable. PARANASAL SINUSES: Unremarkable as visualized. No significant inflammatory changes. MASTOID AIR CELLS: Unremarkable as visualized. No inflammatory changes. OTHER FINDINGS: None. IMPRESSION: No acute intracranial pathology identified.
[2018-07-13 18:06] LABS: HCG,QUALITATIVE URINE NEGATIVE (NEGATIVE)
[2018-07-13 18:35] VITALS: BP 114/80; PULSE 92; RESP 16; TEMP 98.7
== END 2018-07-13 18:35 | disposition home or self-care (01) ==
LOC: C.ER 16:29
DX: R42 Dizziness and giddiness (principal); R51 Headache; Z72.0 Tobacco use
CPT/HCPCS: 70450; 80053; 81001; 84703; 85025; 96374; 99285; J1885